=== PATIENT | female | born 1980 | race Caucasian/White ===

== ENCOUNTER 2023-11-14 10:42 | Observation (INO) | payer BC ==
[~2023-11-14] VITALS: Ht 170.2 cm; Wt 78.5 kg
[~2023-11-14 10:42] MED LIST: ALPR1TAB3 PO; BETA250027 PO; CAMRTAB2 PO; CYCL5TAB PO; HYDR-4571 PO; LEVOTAB10 PO; LIDOCAINE 2% 100MG/5ML SDV (FOR ANES.) As Ordered ONE; META0.52 PO; MIDAZOLAM INJ 2MG/2ML VIAL As Ordered ONE; NAPR-885 PO; OMEP-173 PO; ONDANSETRON 4MG 2ML VIAL As Ordered ONE; ROCURONIUM BROMIDE 50MG/5ML VIAL As Ordered ONE; SUGAMMADEX SODIUM 500 MG/5 ML VIAL (BRIDION) As Ordered ONE; VENTAER INH; [UNRECOGNIZED DRUG - CODE] PO; [UNRECOGNIZED DRUG - OTHER] PO; [UNRECOGNIZED DRUG - OTHER] PO; [UNRECOGNIZED DRUG - OTHER] PO; [UNRECOGNIZED DRUG - REMARK] PO; fentaNYL 100 MCG/2 ML INJECTION As Ordered ONE; propofoL 200 MG/20 ML VIAL As Ordered ONE
[2023-11-14] MEDS ORDERED: LR 1,000 ML IV SCH (10:50)
[2023-11-14] MEDS: SCOPOLAMINE 1MG TRANSDERMAL PATCH TOP ONE (12:37)
[2023-11-14] MEDS: HEPARIN SOD (PORCINE) 5000UNITS/ML 1ML VIAL/SYRINGE SQ ONE (13:12)
[2023-11-14] MEDS ORDERED: KETAMINE HCL 200MG/20ML VIAL As Ordered ONE (13:13)
[2023-11-14] MEDS: CLINDAMYCIN 900 MG in IV 1 EA IV ONE (13:15)
[2023-11-14] MEDS ORDERED: GLYCOPYRROLATE INJ 0.2 MG/ML 2 ML VIAL As Ordered ONE (13:24)
[2023-11-14] MEDS ORDERED: PHENYLephrine 500MCG 5ML (100MCG/ML) SYRINGE As Ordered ONE (13:28)
[2023-11-14] MEDS ORDERED: ePHEDrine SULFATE 25 MG/5 ML(5MG/ML) SYRINGE As Ordered ONE (13:28)
[2023-11-14] MEDS ORDERED: ACETAMINOPHEN 1000MG 100ML IV BAG As Ordered ONE (13:31)
[2023-11-14] MEDS ORDERED: dexmedeTOMIDine (4MCG/ML)200MCG/50ML BTL (PRECEDEX) As Ordered ONE (13:48)
[2023-11-14] MEDS: GENTAMICIN SULF 80MG/2ML VIAL As Ordered ONE (13:48)
[2023-11-14] MEDS: EPINEPHrine INJ 1 MG/ML 1ML AMP As Ordered ONE (13:49)
[2023-11-14] MEDS: LIDOCAINE 1% MDV 20ML VIAL As Ordered ONE (13:50)
[2023-11-14] MEDS ORDERED: ALBUTEROL 6.7GM INHALER **FOR ANES. CART/OMNICELL ONLY As Ordered ONE (14:09)
[2023-11-14] MEDS ORDERED: HYDROmorphone HCL 2MG/ML 1ML VIAL As Ordered ONE (14:36)
[2023-11-14] MEDS ORDERED: fentaNYL 100 MCG/2 ML INJECTION IV PRN (18:05)
[2023-11-14] MEDS ORDERED: ONDANSETRON 4MG 2ML VIAL IV PRN (18:30)
[2023-11-14] MEDS: ONDANSETRON 4MG 2ML VIAL IV PRN (18:30)
[2023-11-14] MEDS ORDERED: ACETAMINOPHEN TAB 650MG DOSE (2X325MG) PO PRN (18:30)
[2023-11-14] MEDS: MORPHINE 2 MG/ML 1ML VIAL IV PRN (18:30)
[2023-11-14] MEDS: oxyCODONE 5MG TAB PO PRN (19:14)
[2023-11-14 19:55] VITALS: BP 134/89; TEMP 98.2; O2SAT 97
[2023-11-14] MEDS: LR 1,000 ML IV SCH (20:05)
[2023-11-14 20:25] VITALS: BP 135/98; TEMP 98.2; O2SAT 98
[2023-11-14 20:55] VITALS: BP 147/98; TEMP 98.1; O2SAT 97
[2023-11-14] MEDS: CLINDAMYCIN 300 MG in IV 1 EA IV SCH (21:15)
[2023-11-14 21:54] VITALS: BP 148/91; TEMP 98.4; O2SAT 98
[2023-11-14 22:52] VITALS: BP 132/99; TEMP 98.1; O2SAT 98
[2023-11-14] MEDS: PERCOCET 5MG/325MG TAB PO PRN (23:45)
[2023-11-14 23:55] VITALS: BP 133/77; TEMP 98.2; O2SAT 97
[2023-11-15 00:55] VITALS: BP 137/75; TEMP 98.2; O2SAT 98
[2023-11-15] MEDS: traMADol 50 MG TAB PO PRN (04:06)
[2023-11-15 04:55] VITALS: BP 129/75; TEMP 98.1; O2SAT 97
[2023-11-15 05:36] VITALS: BP 131/73; TEMP 97.5; O2SAT 95
[2023-11-15] MEDS ORDERED: META58.68 PO (09:46)
[2023-11-15] MEDS ORDERED: ALPR1TAB3 PO (09:46)
[2023-11-15] MEDS ORDERED: HOME MED LIST COMPLETE! XX SCH (09:50)
[2023-11-15 10:00] VITALS: BP 115/77; TEMP 98.4; O2SAT 96
[2023-11-15] MEDS ORDERED: PERCOCET PO (12:39)
[2023-11-15 14:00] VITALS: BP 127/90; TEMP 98.1; O2SAT 96
== END 2023-11-15 15:20 | disposition home or self-care (01) ==
LOC: M SDC 10:42 → M ED INP 18:30 → M MS5PR 19:50
PROVIDERS: ADMIT Plastic Surgery Surgery of the Hand; ATTEND Plastic Surgery Surgery of the Hand
DX: N62 Hypertrophy of breast (principal); M54.50 Low back pain, unspecified; Z88.0 Allergy status to penicillin
CPT/HCPCS: 15877; 19318; 81025; 88300; 88305; C9290; J0131; J0171; J0665; J0737; J1100; J1170; J1580; J2250; J2371; J2405; J3010